=== PATIENT | male | born 1955 | race Caucasian/White ===

== ENCOUNTER 2017-02-02 06:02 | Day surgery (SDC) | payer OTHER ==
[2017-01-30 09:34] LABS: HEMATOCRIT 45.4 % (40.0-51.0); HEMOGLOBIN 15.3 g/dL (13.6-17.8)
[~2017-02-02 06:02] MED LIST: B12100T PO; BESIVANCE0.6 % OPH; FOSAMAX70 MG PO; ILEVRO1.7 ML OPH; OS500+D PO; VITD PO
== END 2017-02-02 23:59 | disposition home or self-care (01) ==
LOC: SDC 06:02
PROVIDERS: Ophthalmology
PROC: 08RJ3JZ Replacement of Right Lens with Synthetic Substitute, Percutaneous Approach (ICD-10-PCS; principal; 2017-02-02 08:30)
DX: H25.11 Age-related nuclear cataract, right eye (principal); M19.90 Unspecified osteoarthritis, unspecified site; Z79.899 Other long term (current) drug therapy; Z87.891 Personal history of nicotine dependence
CPT/HCPCS: 85014; 85018; 93005; J2150; J2405